=== PATIENT | female | born 1995 | race Caucasian/White ===

== ENCOUNTER 2020-12-16 23:44 | Emergency (ER) | payer OTHER ==
[2020-12-16 23:52] VITALS: BP 116/70; PULSE 95; TEMP 99.6; BMI 27.3
== END 2020-12-17 01:08 | disposition home or self-care (01) ==
LOC: FER 23:44
DX: S60.041A Contusion of right ring finger without damage to nail, initial encounter (principal)
CPT/HCPCS: 73140-TC-RT-FY; 99283-25